=== PATIENT | female | born 1995 | race Two or more races ===

== ENCOUNTER → 2024-04-01 08:00 | Outpatient (CLI) | payer OTHER ==
[~2024-04-01 08:00] MED LIST: AMOX1TAB12 PO; CODE1TAB37 PO; MORGIDOX100 MG PO; NAPR500T14 PO; VALTREX1000 MG PO
[2024-04-01 10:39] LABS: HEMATOCRIT 35.1 % (36.0-45.00); HEMOGLOBIN 11.8 g/dL (12.0-15.00); MEAN CELL VOLUME 84.3 fL (80.00-100.00); MEAN CORPUSCULAR HEMOGLOBIN 28.4 pg (27.00-32.0); MEAN CORPUSCULAR HGB CONC 33.7 g/dl (32.0-36.0); PLATELET COUNT 333 K/uL (150-450); RED BLOOD COUNT 4.16 M/uL (4.00-6.00); RED CELL DISTRIBUTION WIDTH 14.3 % (11.5-14.5)
[2024-04-01 10:49] LABS: INR 1.01; PARTIAL THROMBOPLASTIN TIME 24.6 SECONDS (22.0-34.0)
[2024-04-01 10:50] LABS: PH,URINE 5.5 (5.0-8.0); URINE APPEARANCE Clear; URINE BILIRRUBIN Negative (NEGATIVE); URINE BLOOD Negative; URINE COLOR Yellow; URINE GLUCOSE Negative (NEGATIVE); URINE KETONE Negative (NEGATIVE); URINE LEUKOCYTE Negative; URINE NITRATE Negative; URINE PROTEIN Negative (NEGATIVE)
[2024-04-01 10:53] LABS: URINE BACTERIA 80.6 uL (0.0-1933); URINE EPITHELIAL CELLS 7.8 uL (0.0-38.8); URINE RBC 14.1 uL (0.0-20.8)
[2024-04-01 11:25] LABS: ALBUMIN 3.6 gm/dL (3.4-5.0); BILIRUBIN TOTAL 0.25 mg/dL (0.3-1.2); CREATININE SERUM 0.46 mg/dL (0.55-1.02); GFR 159.5; GLOBULINA 3.8 G/DL (2.4-3.5); POTASSIUM 3.87 mEq/L (3.5-5.1); TOTAL PROTEIN 7.4 gm/dL (6.4-8.2)
== END | disposition home or self-care (01) ==
LOC: CIR.AMB → LAB 08:00 → CIR.AMB 04-03 09:40 → EDSTATUS 04-03 18:45
PROVIDERS: ATTEND Obstetrics & Gynecology
DX: O02.1 Missed abortion (principal)

== ENCOUNTER 2024-04-02 14:46 | Inpatient (IN) | payer OTHER ==
[~2024-04-02] VITALS: Ht 149.9 cm; Wt 68.0 kg
[~2024-04-02 14:46] MED LIST changes: -MORGIDOX100 MG PO; -NAPR500T14 PO
[2024-04-02 15:58] LABS: HEMATOCRIT 36.2 % (36.0-45.00); MEAN CELL VOLUME 84.3 fL (80.00-100.00); MEAN CORPUSCULAR HGB CONC 33.3 g/dl (32.0-36.0); PLATELET COUNT 352 K/uL (150-450); RED CELL DISTRIBUTION WIDTH 13.9 % (11.5-14.5)
[2024-04-02 16:37] LABS: URINE APPEARANCE Turbid; URINE BILIRRUBIN Moderate (NEGATIVE); URINE BLOOD Large; URINE COLOR Red; URINE GLUCOSE Negative (NEGATIVE); URINE KETONE Negative (NEGATIVE); URINE LEUKOCYTE Moderate; URINE NITRATE Positive; URINE UROBILINOGEN 0.2 E.U./dl
[2024-04-02 16:42] LABS: URINE BACTERIA 1634.2 uL (0.0-1933); URINE EPITHELIAL CELLS 34.4 uL (0.0-38.8); URINE WBC 156.2 uL (0.0-23.2)
[2024-04-02 17:27] LABS: URINE CAST 0.84 uL (0.0-1.40); URINE PROTEIN 300 (NEGATIVE); URINE RBC > 9821.5 uL (0.0-20.8)
[2024-04-02] MEDS ORDERED: RINGERS SOLUTION,LACTATED 1,000 ML IV SCH (17:30)
[2024-04-02] MEDS ORDERED: PROMETHAZINE HCL 25 MG/ML AMPUL IM PRN (17:45)
[2024-04-02] MEDS ORDERED: MEPERIDINE HCL/PF 25 MG/ML VIAL IM PRN (17:45)
[2024-04-02 18:41] LABS: INR 1.02; PARTIAL THROMBOPLASTIN TIME 24.5 SECONDS (22.0-34.0); PROTHROMBIN TIME 11.1 SECONDS (9.0-11.5)
[2024-04-02 20:10] VITALS: BP 100/66
[2024-04-03] VITALS: BP 104/75
[2024-04-03] MEDS ORDERED: CEFAZOLIN SODIUM 1,000 MG VIAL IV SCH (08:00)
[2024-04-03 09:23] VITALS: BP 98/56
[2024-04-03] MEDS ORDERED: MORPHINE SULFATE 4 MG/ML VIAL IV PRN (15:45)
[2024-04-03] MEDS ORDERED: RINGERS SOLUTION,LACTATED 1,000 ML IV SCH (15:45)
[2024-04-03] MEDS ORDERED: MORGIDOX100 MG PO (15:46)
[2024-04-03] MEDS ORDERED: NAPR500T14 PO (15:46)
[2024-04-03] MEDS ORDERED: CEFAZOLIN SODIUM 1,000 MG VIAL IV ONE (16:15)
[2024-04-03 17:30] VITALS: BP 102/69
[2024-04-03 18:25] VITALS: BP 125/65; O2SAT 100
[2024-04-03] MEDS ORDERED: ONDANSETRON HCL 2 MG/ML VIAL IV SCH (21:00)
== END 2024-04-03 20:30 | disposition home or self-care (01) | DRG 779 ==
LOC: ER 14:48 → OB/GYN 18:21
PROVIDERS: General Practice; ADMIT Obstetrics & Gynecology; ATTEND Obstetrics & Gynecology
PROC: BU4CZZZ Ultrasonography of Uterus and Ovaries (ICD-10-PCS; 2024-04-02)
PROC: 10D17Z9 Manual Extraction of Products of Conception, Retained, Via Natural or Artificial Opening (ICD-10-PCS; principal; 2024-04-03 13:15)
DX: O02.1 Missed abortion (principal); Z3A.08 8 weeks gestation of pregnancy; Z20.822 Contact with and (suspected) exposure to COVID-19

== ENCOUNTER 2024-11-25 14:00 | Outpatient (CLI) | payer OTHER ==
[~2024-11-25 14:00] MED LIST changes: +MORGIDOX100 MG PO; +NAPR500T14 PO
== END 2024-11-25 14:01 | disposition home or self-care (01) ==
LOC: PRENATAL 14:00
PROVIDERS: ATTEND Obstetrics & Gynecology Maternal & Fetal Medicine
DX: O44.00 Complete placenta previa NOS or without hemorrhage, unspecified trimester (principal); O34.219 Maternal care for unspecified type scar from previous cesarean delivery; O43.90 Unspecified placental disorder, unspecified trimester; Z3A.20 20 weeks gestation of pregnancy

== ENCOUNTER 2025-01-23 14:01 | Outpatient (CLI) | payer OTHER | END 2025-01-23 14:02 | disposition home or self-care (01) | LOC: PRENATAL 14:01 | PROVIDERS: ATTEND Obstetrics & Gynecology Maternal & Fetal Medicine | DX: O26.849 Uterine size-date discrepancy, unspecified trimester (principal); O34.219 Maternal care for unspecified type scar from previous cesarean delivery; O43.90 Unspecified placental disorder, unspecified trimester; Z3A.29 29 weeks gestation of pregnancy ==

== ENCOUNTER 2025-03-02 10:01 | Outpatient (CLI) | payer OTHER | END 2025-03-02 10:04 | disposition home or self-care (01) | LOC: PRENATAL 10:01 | PROVIDERS: ATTEND Obstetrics & Gynecology Maternal & Fetal Medicine | DX: O26.849 Uterine size-date discrepancy, unspecified trimester (principal); O36.8130 Decreased fetal movements, third trimester, not applicable or unspecified; O34.219 Maternal care for unspecified type scar from previous cesarean delivery; O43.90 Unspecified placental disorder, unspecified trimester; Z3A.35 35 weeks gestation of pregnancy ==

== ENCOUNTER 2025-03-31 10:43 | Inpatient (IN) | payer OTHER ==
[~2025-03-31] VITALS: Ht 149.9 cm; Wt 2.7 kg
[2025-03-31 10:58] LABS: BASO % 0.2 % (0.1-1.2); EOS # 0.02 (0.04-0.54); EOS % 0.2 % (0.7-7.0); LYMPH # 1.69 (1.18-3.74); LYMPH % 16.2 % (19.3-53.1); MEAN PLATELET VOLUME 11.20 fl (9.4-12.4); MONO # 0.93 (0.24-0.82); MONO % 8.9 % (4.7-12.5); NEUT # 7.75 (1.56-6.13); NEUT % 74.0 % (34.0-71.1); RED CELL DISTRIBUTION WIDTH 15.4 % (11.6-14.4)
[2025-03-31 10:58] LABS: URINE APPEARANCE Clear; URINE BILIRRUBIN Negative (NEGATIVE); URINE BLOOD Negative; URINE COLOR Yellow; URINE GLUCOSE Negative (NEGATIVE); URINE KETONE Negative (NEGATIVE); URINE LEUKOCYTE Trace; URINE NITRATE Negative; URINE PROTEIN Negative (NEGATIVE); URINE UROBILINOGEN 0.2 E.U./dl
[2025-03-31 11:02] LABS: URINE BACTERIA 992.3 uL (0.0-1933); URINE EPITHELIAL CELLS 73.2 uL (0.0-38.8); URINE RBC 3.3 uL (0.0-20.8); URINE WBC 28.9 uL (0.0-23.2)
[2025-03-31 11:18] LABS: INR 0.98
[2025-03-31 11:36] LABS: URINE CAST 0.43 uL (0.0-1.40)
[2025-03-31 11:37] LABS: ALT/SGPT 16.0 U/L (12-78); AST/SGOT 17.0 U/L (15-37); BILIRUBIN TOTAL 0.35 mg/dL (0.3-1.2); BUN CREA RATIO 17.0 (7.0-25.0); CREATININE SERUM 0.41 mg/dL (0.55-1.02); GFR 180.94; GLOBULINA 3.5 G/DL (2.4-3.5); GLUCOSE FASTING 90.0 mg/dL (65-100); OSMOLALITY SERUM 277.0 MOSM/KG (275-295)
[2025-04-02] MEDS ORDERED: PRENATAL + DHA1 EAC1 PO (06:37)
[2025-04-02 06:38] VITALS: BP 105/74
[2025-04-02] MEDS ORDERED: OXYTOCIN 10 UNITS/ML VIAL IV ONE (10:30)
[2025-04-02] MEDS ORDERED: ERYTHROMYCIN BASE OPHT 1GM EACH TUBE OP ONE (10:30)
[2025-04-02] MEDS ORDERED: CEFAZOLIN SODIUM 1,000 MG VIAL IV ONE (10:30)
[2025-04-02] MEDS ORDERED: MORPHINE SULFATE 4 MG/ML CARTRIDGE IV PRN (11:00)
[2025-04-02] MEDS ORDERED: OXYTOCIN 1,000 ML IV SCH (11:00)
[2025-04-02] MEDS ORDERED: ONDANSETRON HCL 2 MG/ML VIAL IV PRN (11:00)
[2025-04-02] MEDS ORDERED: SIMETHICONE 125 MG CAPSULE PO SCH (13:00)
[2025-04-02 16:45] LABS: BASO % 0.2 % (0.1-1.2); EOS # 0.00 (0.04-0.54); EOS % 0.0 % (0.7-7.0); LYMPH # 1.72 (1.18-3.74); LYMPH % 9.6 % (19.3-53.1); MEAN PLATELET VOLUME 11.60 fl (9.4-12.4); MONO # 1.32 (0.24-0.82); MONO % 7.4 % (4.7-12.5); NEUT # 14.72 (1.56-6.13); NEUT % 82.4 % (34.0-71.1); RED CELL DISTRIBUTION WIDTH 15.5 % (11.6-14.4)
[2025-04-02 16:49] VITALS: BP 106/69
[2025-04-02 20:37] VITALS: BP 106/70
[2025-04-03 02:25] VITALS: BP 102/64
[2025-04-03] MEDS ORDERED: ACETAMINOPHEN WITH CODEINE 1 UDTAB TABLET PO PRN (06:00)
[2025-04-03 06:06] VITALS: BP 113/78
[2025-04-03 08:00] VITALS: BP 103/64
[2025-04-03] MEDS ORDERED: DOCUSATE SODIUM 100MG CAP PO SCH (09:00)
[2025-04-03 15:51] VITALS: BP 119/85
[2025-04-03] MEDS ORDERED: NAPROXEN 500 MG TABLET PO PRN (21:00)
[2025-04-04 00:08] VITALS: BP 115/78
[2025-04-04] MEDS ORDERED: NAPROXEN500 MG PO (09:30)
[2025-04-04] MEDS ORDERED: COLACE100 MG PO (09:30)
[2025-04-04] MEDS ORDERED: SIMETHICONE125 M1 PO (09:30)
[2025-04-04 10:22] VITALS: BP 109/72
== END 2025-04-04 13:13 | disposition home or self-care (01) | DRG 785 ==
LOC: O/R 04-02 07:00 → LDR 04-02 09:49 → OB/GYN 04-02 15:53
PROVIDERS: ADMIT Obstetrics & Gynecology; ATTEND Obstetrics & Gynecology
PROC: 0UB70ZZ Excision of Bilateral Fallopian Tubes, Open Approach (ICD-10-PCS; 2025-04-02)
PROC: 4A1HXCZ Monitoring of Products of Conception, Cardiac Rate, External Approach (ICD-10-PCS; 2025-04-02)
PROC: 10D00Z1 Extraction of Products of Conception, Low, Open Approach (ICD-10-PCS; principal; 2025-04-02 11:45)
DX: O34.211 Maternal care for low transverse scar from previous cesarean delivery (principal); Z3A.38 38 weeks gestation of pregnancy; Z37.0 Single live birth; Z30.2 Encounter for sterilization